=== PATIENT | male | born 1975 | race Caucasian/White ===

== ENCOUNTER 2024-11-21 16:11 | Emergency (ER) | payer MEDICAID ==
[2024-11-21] MEDS ORDERED: Quelicin Fliptop 200 MG/10 ML IV ONE (16:12)
[2024-11-21] MEDS ORDERED: BALFAXAR 500 UNIT VIAL IV ONE (16:12)
[2024-11-21] MEDS ORDERED: VERSED 5 MG/5 ML IV ONE (16:12)
[2024-11-21] MEDS ORDERED: Keppra 500 MG/5 ML IV ONE (16:12)
[2024-11-21] MEDS ORDERED: propofoL IV ONE (16:12)
[2024-11-21] MEDS ORDERED: Propofol 1000 mg/100 ml Bottle IV ONE (16:12)
[2024-11-21] MEDS ORDERED: Zofran 4 MG/2 ML VIAL IV ONE (16:13)
[2024-11-21] MEDS ORDERED: Sodium Chloride 0.9% 1000 ML 1,000 ML IV ONE (16:19)
[2024-11-21 16:35] VITALS: O2SAT 100
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
[2024-11-21 17:08] LABS: VBG BASE EXCESS -1.6 (-2.0-2.0); VBG CARBOXYHEMOGLOBIN 1.5 % T HGB (0.0-6.9); VBG HCO3- 25.6 meq/L (22-28); VBG HEMOGLOBIN 14.2; VBG O2 SATURATION 82.3 (95-100); VBG POTASSIUM 3.6 (3.5-5.1); VBG pH 7.3 (7.32-7.42)
[2024-11-21 17:37] VITALS: TEMP 97.4
[2024-11-21 18:17] VITALS: BP 132/93; PULSE 106
== END 2024-11-21 17:06 | disposition short-term general hospital (02) ==
LOC: ED 16:11
DX: S01.01XA Laceration without foreign body of scalp, initial encounter (principal); S06.9X9A Unspecified intracranial injury with loss of consciousness of unspecified duration, initial encounter; V43.52XA Car driver injured in collision with other type car in traffic accident, initial encounter; Z79.01 Long term (current) use of anticoagulants; Z79.899 Other long term (current) drug therapy
CPT/HCPCS: 12002; 31500; 36556; 51702; 71045; 82805; 99285; 99291; J0330; J1953; J2250; J2405; J2704; J7165